=== PATIENT | male | born 1965 | race Caucasian/White ===

== ENCOUNTER 2018-05-23 16:17 | Emergency (ER) | payer OTHER ==
[2018-05-23 16:25] VITALS: RESP 18; TEMP 97
[2018-05-23] MEDS ORDERED: SODIUM CHLORIDE 0.9% 1,000 ML IV STA (16:25)
--- NOTE | 2018-05-23 16:47 | ED ---
General Adult HPI - General Chief complaint: Chest Pain Stated complaint: Chest Pain Source: EMS Mode of arrival: EMS Limitations: no limitations - History of Present Illness Initial comments: Dictation was produced using [employer] dictation software. please excuse any grammatical, word or spelling errors. Chief Complaint: 52-year-old male with no significant past medical history presents with shortness of breath 3 days. History of Present Illness: 2-year-old male who presents to us via transfer from clinic for shortness of breath and EKG changes. At the clinic and EKG was performed. Findings showed possible STEMI. Patient was transferred here via EMS. The past 3 days patient has had worsening exertional shortness of breath and chest pain. Patient also has been having orthopneic symptoms. He presents today with his . Patient feels okay at the moment. Patient denies any chest pain. Over the past 2 days patient has been doing a juice cleanse eye. Patient states he has not been having any appetite recently. The ROS documented in this emergency department record has been reviewed and confirmed by me. Those systems with pertinent positive or negative responses have been documented in the HPI. All other systems are other negative and/or noncontributory. - Related Data Home Medications Medication Instructions Recorded Confirmed No Known Home Medications 05/23/18 05/23/18 Allergies Allergy/AdvReac Type Severity Reaction Status Date / Time No Known Allergies Allergy Verified 05/23/18 16:31 Review of Systems ROS Statement: Those systems with pertinent positive or pertinent negative responses have been documented in the HPI. ROS Other: All systems not noted in ROS Statement are negative. Past Medical History Past Medical History: No Reported History History of Any Multi-Drug Resistant Organisms: None Reported Past Surgical History: No Surgical Hx Reported Past Psychological History: No Psychological Hx Reported Smoking Status: Former smoker Past Alcohol Use History: None Reported Past Drug Use History: None Reported General Exam - General Exam Comments Initial Comments: PHYSICAL EXAM: General Impression: Alert and oriented x3, not in acute distress HEENT: Normocephalic atraumatic, extra-ocular movements intact, pupils equal and reactive to light bilaterally, mucous membranes moist. Cardiovascular: Heart regular rate and rhythm, S1&S2 audible, no murmurs, rubs or gallops Chest: Bilateral lung crackles Abdomen: Bowel sounds present, abdomen soft, non-tender, non-distended, no organomegaly Musculoskeletal: Pulses present and equal in all extremities, 1+ pitting edema bilaterally Motor: Power 5/5 bilaterally, no focal deficits noted Neurological: CN II-XII grossly intact, no focal motor or sensory deficits noted Skin: Intact with no visualized rashes Psych: Normal affect and mood Limitations: no limitations Course Vital Signs 05/23/18 05/23/18 05/23/18 16:23 16:50 17:17 Temperature 97.0 F L Pulse Rate 102 H 98 96 Respiratory 18 18 18 Rate Blood Pressure 119/87 103/71 117/60 O2 Sat by Pulse 98 98 98 Oximetry 05/23/18 18:08 Temperature Pulse Rate 95 Respiratory 18 Rate Blood Pressure 115/74 O2 Sat by Pulse 98 Oximetry Medical Decision Making - Medical Decision Making ED course: 52-year-old male presents with worsening exertional shortness of breath suspicious for new onset congestive heart failure. Patient denied chest pain. Prehospital EKG is reviewed by myself. No convincing evidence to suggest that patient's prehospital EKG showed ST segment elevation PA. EKG was ordered immediately in our emergency department. No convincing evidence to suggest that this EKG represents ST segment elevation PA. EKG was immediately faxed over to dog control officer solar applications development engineer Dr. Mondragon who agreed that code STEMI should not be activated. Patient has been malnourished recently. There appears to be a component of dehydration. Vital signs upon arrival shows heart rate of 102, rest of vital signs within normal limits.Laboratory evaluation obtained. CBC is unremarkable. Metabolic panel shows glucose of 113, sodium of 126, potassium of 5.9, non-gap acidosis. Chloride of 93. Mildly elevated renal markers. Lactic acidosis of 2.8. There is mild transaminitis. Troponin is 11.0, brain natruretic peptide is 13,400. Discussed patient case with cardiology who agrees with starting patient on heparin and nitroglycerin. Patient given aspirin. They recommend placing patient in selective care unit. Clinical presentation is consistent with ischemic cardiomyopathy likely from recent ischemic heart condition. I suspect patient suffered cardiac ischemia on multiple occasions in the last couple weeks. Describes that he had substernal chest pressure with associated diaphoresis on multiple occasions. Patient states that he has been relatively asymptomatic of chest pain perspective over the last 3 days. EKG performed at our facility does not suggest STEMI. Patient denies chest pain at this time. His primary complaint is shortness of breath. EKG interpretation: Ventricular rate 102. Sinus tachycardia rhythm. CA interval 150, QRS 174, QTC 542. No old EKG for comparison. There is findings of right bundle branch block. No definitive signs of STEMI at this time. However there is abnormalities of prolonged QT and likely inferior infarct. At approximately 6:30 PM patient had an episode where he became unresponsive and agonal breathing. He was cyanotic. I was called to bedside. It appeared that he was having tonic-clonic like activity however on the monitor showed V. fib. Patient did not have a pulse. CPR was started immediately. patient monitor was placed. Code was called. Please see code sheet for further details of resuscitative measures. Resuscitation was pursued for several minutes. Patient was persistently and ventricular fibrillation despite all the measures we performed including administration of medications, multiple defibrillations. Decision was made to seize resuscitative efforts along with after counseling that further resuscitative measures are likely to provide no benefit. CPR was ceased and patient was pronounced at 1850 p.m. Given clinical presentation. Patient likely suffered severe cardiac ischemia over the last several days causing ischemic cardiomyopathy. Given the cardiac remodeling he was at risk for ventricular fibrillation. Patient went into cardiac arrest secondary to V. fib. We're unfortunately unable to obtain return of spontaneous circulation. - Lab Data Result diagrams: 05/23/18 16:30 05/23/18 16:30 Lab Results 05/23/18 05/23/18 05/23/18 Range/Units 16:30 16:30 16:30 WBC 10.1 (3.8-10.6) k/uL RBC 4.42 (4.30-5.90) m/uL Hgb 12.7 L (13.0-17.5) gm/dL Hct 36.9 L (39.0-53.0) % MCV 83.5 (80.0-100.0) fL MCH 28.6 (25.0-35.0) pg MCHC 34.3 (31.0-37.0) g/dL RDW 15.0 (11.5-15.5) % Plt Count 135 L (150-450) k/uL Neutrophils % 75 % Lymphocytes % 16 % Monocytes % 7 % Eosinophils % 1 % Basophils % 0 % Neutrophils # 7.6 (1.3-7.7) k/uL Lymphocytes # 1.7 (1.0-4.8) k/uL Monocytes # 0.7 (0-1.0) k/uL Eosinophils # 0.1 (0-0.7) k/uL Basophils # 0.0 (0-0.2) k/uL PT (9.0-12.0) sec INR (<1.2) APTT (22.0-30.0) sec Sodium 126 L (137-145) mmol/L Potassium 5.9 H (3.5-5.1) mmol/L Chloride 93 L (98-107) mmol/L Carbon Dioxide 19 L (22-30) mmol/L Anion Gap 14 mmol/L BUN 49 H (9-20) mg/dL Creatinine 1.36 H (0.66-1.25) mg/dL Est GFR (CKD-EPI)AfAm 68 (>60 ml/min/1.73 sqM) Est GFR (CKD-EPI)NonAf 59 (>60 ml/min/1.73 sqM) Glucose 113 H (74-99) mg/dL Lactic Ac Sepsis Rflx Plasma Lactic Acid Myke 2.8 H* (0.7-2.0) mmol/L Calcium 9.2 (8.4-10.2) mg/dL Magnesium 2.5 H (1.6-2.3) mg/dL Total Bilirubin 2.2 H (0.2-1.3) mg/dL AST 626 H (17-59) U/L ALT 1070 H (21-72) U/L Alkaline Phosphatase 226 H (38-126) U/L Troponin I (0.000-0.034) ng/mL NT-Pro-B Natriuret Pep pg/mL Total Protein 6.5 (6.3-8.2) g/dL Albumin 3.7 (3.5-5.0) g/dL Lipase 291 (23-300) U/L 05/23/18 05/23/18 05/23/18 Range/Units 16:30 16:30 16:30 WBC (3.8-10.6) k/uL RBC (4.30-5.90) m/uL Hgb (13.0-17.5) gm/dL Hct (39.0-53.0) % MCV (80.0-100.0) fL MCH (25.0-35.0) pg MCHC (31.0-37.0) g/dL RDW (11.5-15.5) % Plt Count (150-450) k/uL Neutrophils % % Lymphocytes % % Monocytes % % Eosinophils % % Basophils % % Neutrophils # (1.3-7.7) k/uL Lymphocytes # (1.0-4.8) k/uL Monocytes # (0-1.0) k/uL Eosinophils # (0-0.7) k/uL Basophils # (0-0.2) k/uL PT 13.1 H (9.0-12.0) sec INR 1.4 H (<1.2) APTT 21.3 L (22.0-30.0) sec Sodium (137-145) mmol/L Potassium (3.5-5.1) mmol/L Chloride (98-107) mmol/L Carbon Dioxide (22-30) mmol/L Anion Gap mmol/L BUN (9-20) mg/dL Creatinine (0.66-1.25) mg/dL Est GFR (CKD-EPI)AfAm (>60 ml/min/1.73 sqM) Est GFR (CKD-EPI)NonAf (>60 ml/min/1.73 sqM) Glucose (74-99) mg/dL Lactic Ac Sepsis Rflx Plasma Lactic Acid Myke (0.7-2.0) mmol/L Calcium (8.4-10.2) mg/dL Magnesium (1.6-2.3) mg/dL Total Bilirubin (0.2-1.3) mg/dL AST (17-59) U/L ALT (21-72) U/L Alkaline Phosphatase (38-126) U/L Troponin I 11.000 H* (0.000-0.034) ng/mL NT-Pro-B Natriuret Pep 90250 pg/mL Total Protein (6.3-8.2) g/dL Albumin (3.5-5.0) g/dL Lipase (23-300) U/L 05/23/18 Range/Units 17:20 WBC (3.8-10.6) k/uL RBC (4.30-5.90) m/uL Hgb (13.0-17.5) gm/dL Hct (39.0-53.0) % MCV (80.0-100.0) fL MCH (25.0-35.0) pg MCHC (31.0-37.0) g/dL RDW (11.5-15.5) % Plt Count (150-450) k/uL Neutrophils % % Lymphocytes % % Monocytes % % Eosinophils % % Basophils % % Neutrophils # (1.3-7.7) k/uL Lymphocytes # (1.0-4.8) k/uL Monocytes # (0-1.0) k/uL Eosinophils # (0-0.7) k/uL Basophils # (0-0.2) k/uL PT (9.0-12.0) sec INR (<1.2) APTT (22.0-30.0) sec Sodium (137-145) mmol/L Potassium (3.5-5.1) mmol/L Chloride (98-107) mmol/L Carbon Dioxide (22-30) mmol/L Anion Gap mmol/L BUN (9-20) mg/dL Creatinine (0.66-1.25) mg/dL Est GFR (CKD-EPI)AfAm (>60 ml/min/1.73 sqM) Est GFR (CKD-EPI)NonAf (>60 ml/min/1.73 sqM) Glucose (74-99) mg/dL Lactic Ac Sepsis Rflx Y Plasma Lactic Acid Myke (0.7-2.0) mmol/L Calcium (8.4-10.2) mg/dL Magnesium (1.6-2.3) mg/dL Total Bilirubin (0.2-1.3) mg/dL AST (17-59) U/L ALT (21-72) U/L Alkaline Phosphatase (38-126) U/L Troponin I (0.000-0.034) ng/mL NT-Pro-B Natriuret Pep pg/mL Total Protein (6.3-8.2) g/dL Albumin (3.5-5.0) g/dL Lipase (23-300) U/L Critical Care Time Critical Care Time: Yes Total Critical Care Time: 20 Critical Care Time: cpr, v fib arrest, persistent vfib Disposition Clinical Impression: Cardiomyopathy, Acute non-ST segment elevation myocardial infarction (STEMI) following previous myocardial infarction Disposition: ADMITTED IP TO THIS HOSP Condition: Fair Referrals: None,Stated [Primary Care Provider] - 1-2 days Decision Time: 18:09
[2018-05-23 17:00] LABS: Basophils % (A) 0 %; Eosinophils # (A) 0.1 k/uL (0-0.7); Eosinophils % (A) 1 %; HCT 36.9 % (39.0-53.0); HGB 12.7 gm/dL (13.0-17.5); Lymphocytes # (A) 1.7 k/uL (1.0-4.8); Lymphocytes % (A) 16 %; MCH 28.6 pg (25.0-35.0); MCHC 34.3 g/dL (31.0-37.0); MCV 83.5 fL (80.0-100.0); Mean Platelet Volume 9.5; Monocytes # (A) 0.7 k/uL (0-1.0); Monocytes % (A) 7 %; Neutrophils # (A) 7.6 k/uL (1.3-7.7); Neutrophils % (A) 75 %; Platelet Count 135 k/uL (150-450); RBC 4.42 m/uL (4.30-5.90); WBC 10.1 k/uL (3.8-10.6)
[2018-05-23 17:08] LABS: Albumin 3.7 g/dL (3.5-5.0); Calcium 9.2 mg/dL (8.4-10.2); Total Bilirubin 2.2 mg/dL (0.2-1.3); Total Protein 6.5 g/dL (6.3-8.2)
[2018-05-23 17:16] LABS: Magnesium 2.5 mg/dL (1.6-2.3); Potassium 5.9 mmol/L (3.5-5.1)
[2018-05-23] MEDS ORDERED: ALBUTEROL NEB (CONC) 2.5 MG/0.5 ML INHALATION ONE (17:33)
[2018-05-23] MEDS ORDERED: SODIUM BICARB 8.4% 50 ML SYR (1 MEQ/ML) IV ONE (17:33)
[2018-05-23] MEDS ORDERED: CALCIUM CHLORIDE 1,000 MG in SODIUM CHLORIDE 0.9% 100 ML IV ONE (17:33)
[2018-05-23] MEDS ORDERED: INSULIN REGULAR 100 UNIT/ML VIAL IV ONE (17:33)
[2018-05-23] MEDS ORDERED: DEXTROSE 50%-WATER 50 ML SYRINGE IVP ONE (17:33)
[2018-05-23] MEDS ORDERED: FUROSEMIDE 10 MG/ML 2 ML VIAL IV ONE (17:36)
--- NOTE | 2018-05-23 17:36 | XR ---
EXAMINATION TYPE: XR chest 2V DATE OF EXAM: 05/23/2018 COMPARISON: NONE HISTORY: Chest pain for 2 weeks TECHNIQUE: Frontal and lateral views of the chest are obtained. FINDINGS: There is blunting of right costophrenic angle. Heart appears enlarged. There is mild pulmo nary congestion. There are chest leads. Bony thorax is intact. IMPRESSION: There is evidence for very mild heart failure with small right pleural effusion.
[2018-05-23] MEDS ORDERED: HEPARIN SODIUM,PORCINE 5,000 UNIT/ML 1 ML VIAL IV ONE (17:38)
[2018-05-23] MEDS ORDERED: HEPARIN SODIUM,PORCINE 5,000 UNIT/ML 1 ML VIAL IV PRN (17:38)
[2018-05-23] MEDS ORDERED: HEPARIN SOD,PORK IN 0.45% NACL 25,000 UNIT in 0.45% NACL 1 500ML.BAG IV SCH (17:45)
[2018-05-23] MEDS ORDERED: ASPIRIN 81 MG PO STA (17:59)
[2018-05-23] MEDS ORDERED: NITROGLYCERIN OINT 1 INCH/GM PACKET TOPICAL STA (17:59)
[2018-05-23] MEDS ORDERED: NALOXONE 0.4 MG/ML 1 ML VIAL IV PRN (18:01)
[2018-05-23] MEDS ORDERED: LIDOCAINE 2% SYG (PF) 100 MG/5 ML ONE (18:08)
[2018-05-23] MEDS ORDERED: AMIODARONE 50 MG/ML 3 ML VIAL IV ONE (18:08)
[2018-05-23] MEDS ORDERED: METOPROLOL TARTRATE 5 MG/5 ML VIAL IVP ONE (18:08)
[2018-05-23] MEDS ORDERED: CALCIUM CHLORIDE 100 MG/ML 10 ML SYRINGE ONE (18:08)
[2018-05-23] MEDS ORDERED: EPINEPHrine 10 ML SYRINGE (0.1 MG/ML) ONE (18:08)
[2018-05-23] MEDS ORDERED: SODIUM BICARB 8.4% 50 ML SYR (1 MEQ/ML) ONE (18:08)
[2018-05-23] MEDS ORDERED: DEXTROSE 5% IN WATER 50 ML BAG ONE (18:08)
[2018-05-23 18:09] VITALS: BP 115/74; PULSE 95
[2018-05-23 19:41] LABS: INR 1.4 (<1.2); Partial Thromboplastin Time 21.3 sec (22.0-30.0); Prothrombin Time 13.1 sec (9.0-12.0)
== END 2018-05-23 18:50 | disposition other institution (70) ==
LOC: EC 16:17
DX: I21.4 Non-ST elevation (NSTEMI) myocardial infarction (principal); I42.9 Cardiomyopathy, unspecified; Z87.891 Personal history of nicotine dependence; R94.4 Abnormal results of kidney function studies; R74.0 Nonspecific elevation of levels of transaminase and lactic acid dehydrogenase [LDH]; I45.10 Unspecified right bundle-branch block; Z53.8 Procedure and treatment not carried out for other reasons
CPT/HCPCS: 36415; 93005; 83880; 80053; 83605; 83690; 83735; 84484; 85025; 85610; 85730; 71046; 99285; 92950; 96374; 96375; J1644